=== PATIENT | male | born 1960 | race Caucasian/White ===

== ENCOUNTER 2016-02-26 15:22 | Emergency (ER) | payer SELFPAY ==
[~2016-02-26] VITALS: Ht 175.3 cm; Wt 60.0 kg
[2016-02-26 15:34] VITALS: BP 128/85; PULSE 72; RESP 18; TEMP 98.2; O2SAT 97
--- NOTE | 2016-02-26 17:18 | PD ---
HPI Chief Complaint: Alcohol/Drug Intoxication Time Seen by Provider: 17:12 Travel History International Travel<30 days: No Contact w/Intl Traveler<30days: No Traveled to known affect area: No History of Present Illness HPI The patient is a 55-year-old male who presents to the emergency department via EMS for alcohol intoxication. The patient apparently was found down on the ground, intoxicated, therefore, was transported to the hospital. The patient admits to drinking several beers earlier today, however, is unable to quantify the exact amount. He estimates approximately "4-5 beers ". The patient denies any current physical complaints. He denies any current headache , nausea, vomiting, abdominal pain, or focal deficits. Toes are mild, possibly exacerbated by drinking too much alcohol, and there are no current alleviating factors. PFSH Past Medical History Cancer: No Cardiovascular Problems: No Diminished Hearing: No Endocrine: No Gastrointestinal Disorders: No Genitourinary: No Immune Disorder: No Implanted Vascular Access Dvce: No Musculoskeletal: No Neurologic: No Psychiatric: No Reproductive: No Respiratory: No Immunizations Current: Yes Past Surgical History Abdominal Surgery: No Cardiac Surgery: No Ear Surgery: No Endocrine Surgery: No Eye Surgery: No Genitourinary Surgery: No Gynecologic Surgery: No Oral Surgery: No Thoracic Surgery: No Other Surgery: Yes (skin grafts) Social History Alcohol Use: Yes (daily) Tobacco Use: Yes (1/2ppd) Substance Use: Yes (MARIJUANA) Allergies-Medications (Allergen,Severity, Reaction): Coded Allergies: No Known Allergies (Unverified , 02/26/16) Reported Meds & Prescriptions Reported Meds & Active Scripts Active No Active Prescriptions or Reported Medications Review of Systems Except as stated in HPI: all other systems reviewed are Neg Cardiovascular: No: Chest Pain or Discomfort Respiratory: No: Shortness of Breath Gastrointestinal: No: Nausea, Vomiting, Abdominal Pain Neurologic: No: Weakness, Dizziness Psychiatric: Positive: Substance Abuse Physical Exam Narrative GENERAL: Awake, alert, 55-year-old male appears his stated age and is in no acute respiratory distress. SKIN: Multiple skin grafting scars on the arms and back. HEAD: Atraumatic. Normocephalic. EYES: Pupils equal and round. Mild bilateral injection. ENT: No nasal bleeding or discharge. Mucous membranes pink and moist. Breath smells of alcohol. NECK: Trachea midline. No JVD. CARDIOVASCULAR: Regular rate and rhythm. No murmur appreciated. RESPIRATORY: No accessory muscle use. Clear to auscultation. Breath sounds equal bilaterally. GASTROINTESTINAL: Abdomen soft, non-tender, nondistended. No rebound tenderness. MUSCULOSKELETAL: No obvious deformities. No clubbing. No cyanosis. No edema. NEUROLOGICAL: Awake and alert. No obvious cranial nerve deficits. Motor grossly within normal limits. Normal speech. Patient is oriented to person, month, and year. PSYCHIATRIC: Appropriate mood and affect; insight and judgment normal. Data Data Last Documented VS Vital Signs Date Time Temp Pulse Resp B/P Pulse Ox O2 Delivery O2 Flow Rate FiO2 02/26/16 17:35 73 16 108/75 99 Room Air 02/26/16 15:34 98.2 Orders Basic Metabolic Panel (Bmp) (02/26/16 17:16) Alcohol (Ethanol) (02/26/16 17:16) Labs Laboratory Tests Test 02/26/16 17:45 Sodium Level 144 MEQ/L Potassium Level 4.1 MEQ/L Chloride Level 109 MEQ/L Carbon Dioxide Level 27.1 MEQ/L Anion Gap 8 MEQ/L Blood Urea Nitrogen 8 MG/DL Creatinine 0.79 MG/DL Estimat Glomerular Filtration 102 ML/MIN Rate Random Glucose 91 MG/DL Calcium Level 8.0 MG/DL Ethyl Alcohol Level 416 MG/DL [facility] Medical Decision Making Medical Screen Exam Complete: Yes Emergency Medical Condition: Yes Medical Record Reviewed: Yes Interpretation(s) Laboratory Tests Test 02/26/16 17:45 Sodium Level 144 MEQ/L Potassium Level 4.1 MEQ/L Chloride Level 109 MEQ/L Carbon Dioxide Level 27.1 MEQ/L Anion Gap 8 MEQ/L Blood Urea Nitrogen 8 MG/DL Creatinine 0.79 MG/DL Estimat Glomerular Filtration 102 ML/MIN Rate Random Glucose 91 MG/DL Calcium Level 8.0 MG/DL Ethyl Alcohol Level 416 MG/DL Differential Diagnosis Differential diagnosis includes alcohol intoxication, substance ingestion, alcohol abuse, hyponatremia, dehydration. Narrative Course Alcohol and BMP were sent to lab. The patient was monitored in the emergency department. BMP is unremarkable, no evidence of hyponatremia. Alcohol level is elevated at 416. No evidence of acute injury. The patient will be allowed to sleep it off until he is able to ambulate and has a safe disposition home. Diagnosis Primary Impression: Alcohol intoxication Qualified Code: F10.120 - Alcohol intoxication, uncomplicated Scripts No Active Prescriptions or Reported Meds Disposition: 01 DISCHARGE HOME Condition: Stable Lucio Bowden MD Feb 26, 2016 17:18
[2016-02-26 17:35] VITALS: BP 108/75; PULSE 73; RESP 16; O2SAT 99
[2016-02-26 18:28] LABS: BICARBONATE 27.1 MEQ/L (21.0-32.0); POTASSIUM 4.1 MEQ/L (3.5-5.1)
[2016-02-26 19:50] VITALS: BP 111/72; PULSE 80; RESP 16; O2SAT 100
== END 2016-02-26 22:15 | disposition home or self-care (01) ==
LOC: NEPE 15:22
DX: F10.129 Alcohol abuse with intoxication, unspecified (principal); F17.200 Nicotine dependence, unspecified, uncomplicated; F12.90 Cannabis use, unspecified, uncomplicated
CPT/HCPCS: 80048; 80320; 99284